=== PATIENT | male | born 1960 | race Caucasian/White ===

== ENCOUNTER 2016-09-09 16:31 | Emergency (ER) | payer OTHER ==
[~2016-09-09] VITALS: Ht 172.7 cm; Wt 103.4 kg
[~2016-09-09 16:31] MED LIST: ALEVE220 MG PO; LISINOPRIL10 M1 PO; LOSARTAN POTAS100 M1 PO; MOTRIN800 MG PO; NAPROXEN500 MG PO; NORCO 325 MG-51 TAB PO; XANAX0.25 M1 PO; [UNRECOGNIZED DRUG - OTHER] PO
--- NOTE | 2016-09-09 17:31 | ED NECK/BACK PAIN COMPLAINT ---
History of Present Illness General Chief Complaint: Neck/Upper Back Pain/Injury Stated Complaint: NECK PAIN FOR 5 WEEKS Source: patient Exam Limitations: no limitations Vital Signs & Intake/Output Vital Signs & Intake/Output Vital Signs Date Time Temp Pulse Resp B/P Pulse O2 O2 Flow FiO2 Ox Delivery Rate 09/09 1908 70 18 135/77 96 Room Air 09/09 1636 97.8 87 20 134/79 97 Room Air Allergies Coded Allergies: NO KNOWN ALLERGIES (09/09/16) Reconcile Medications Alprazolam (Xanax) 0.25 MG TABLET 1 TAB PO BIDP PRN anxiety Lisinopril 10 MG TABLET 1 TAB PO DAILY HYPERTENSION Losartan Potassium 100 MG TABLET 1 TAB PO DAILY HEART (Reported) Triage Note: TRIAGE: PT TO ER C/C NECK AND BACK PAIN X COUPLE MONTHS, CONSTANT AND WORSENING SINCE ONSET. DESCRIBES THROBBING AND STIFF IN NATURE. TRIED BUYING A NEW PILLOW WITH NO RELIEF NOTED. TAKING IBUPROFEN WITH NO RELIEF. NO KNOWN INJURY. Triage Nurses Notes Reviewed? yes HPI: Patient presents for evaluation of bilateral neck pain that began about 3 weeks ago. It begins in the back of the neck and wraps around to the front. Patient denies any associated injury or trauma. Patient denies any prior episodes. Patient describes a throbbing pain, 6 out of 10 in intensity but gets worse at night. Patient has tried ibuprofen and massages with transient improvement. He is even changed his pillow. The patient also states he has had numbness and tingling of both hands over the past week and occasionally they spasm. In Addition he is having pain in both of his temples traveling down into the jaw. Past History Travel History Traveled to [place] past 21 day No Medical History Any Pertinent Medical History? see below for history Neurological: NONE EENT: blood/chemical smell in the nose Cardiovascular: hypertension Respiratory: NONE Gastrointestinal: NONE Hepatic: NONE Renal: NONE Musculoskeletal: ARTHRITIS LEFT KNEE Psychiatric: anxiety Endocrine: NONE Blood Disorders: NONE Cancer(s): NONE INSIDE OUTSIDE SALES REPRESENTATIVE/Reproductive: NONE Surgical History Surgical History: non-contributory Psychosocial History What is your primary language Tanzanian Tobacco Use: Quit >30 days ago ETOH Use: occasional use Illicit Drug Use: denies illicit drug use Family History Hx Contributory? No Review of Systems Review of Systems Constitutional: Reports: no symptoms. Eyes: Reports: no symptoms. Ears, Nose, Throat, Mouth: Reports: see HPI. Respiratory: Reports: no symptoms. Cardiovascular: Reports: no symptoms. Gastrointestinal/Abdominal: Reports: no symptoms. Musculoskeletal: Reports: see HPI. Skin: Reports: no symptoms. Neurological/Psychological: Reports: tingling. All Other Systems: Reviewed and Negative Physical Exam Physical Exam Neck: see below Comments: Gen.: Well-nourished, well-developed, no acute respiratory distress. Head: Normocephalic, atraumatic. Eyes: Normal inspection bilaterally Ears: Normal inspection bilaterally Nose: Normal inspection Throat/mouth : Moist mucosa Neck: Supple, full range of motion without apparent discomfort, no goiter Heart: Regular rate and rhythm, no murmurs rubs or gallops, mild midline neck tenderness without associated soft tissue swelling or ecchymoses. Lungs: Clear to auscultation bilaterally with normal air entry Chest: Nontender Back: Normal range of motion, nontender Abdomen: Soft, nontender, nondistended, normal bowel sounds Extremities: Normal range of motion grossly, equal radial pulses, no cyanosis clubbing or edema Neurologic: Cranial nerves grossly intact, speech is clear, extremity sensation intact to light touch. Skin: warm and dry Psychiatric: Calm, cooperative, no apparent delusions or hallucinations Progress Differential Diagnosis: herniated disc, myofascial strain Plan of Care: Current Medications Sig/Kelsey Start time Last Medication Dose Stop Time Status Admin Cyclobenzaprine HCl 5 MG ONCE ONE 09/09 1929 UNVr (Flexeril 5MG Tab) 09/09 1930 Naproxen 1 MG ONCE ONE 09/09 1929 UNVr (Naprosyn) 09/09 1930 Anti-inflammatory muscle relaxant (JURGEN MONTANEZ,SCOT Bender) Diagnostic Imaging: Discussed w/RAD: Radiology Read. Radiology Impression: PATIENT: ERIKA BARON PRESENT AGE: 56 PATIENT ACCOUNT NO: [id number] : 62 LOCATION: [facility] ORDERING PHYSICIAN: SCOT SEAMAN MD SERVICE DATE: 09/09/16 EXAM TYPE: RAD - XRY-CERV SPINE 4 OR 5 VIEWS EXAMINATION: XR CERVICAL SPINE CLINICAL INFORMATION: 56-year-old man with neck pain and upper extremity paresthesias. COMPARISON: None. TECHNIQUE: 5 views of the cervical spine were obtained. FINDINGS: There is no evidence of acute fracture. Vertebral bodies are normal in height, intervertebral disc spaces are preserved, and alignment is anatomic. No significant bony foraminal stenosis is noted on either side. IMPRESSION: Unremarkable radiographic appearance of the cervical spine. DICTATED BY: SEBAS FRANKEL MD DATE/TIME DICTATED:09/09/161829 HOME HEALTH BILLING SPECIALIST:ESME DATE/TIME TRANSCRIBED:09/09/161829 CONFIDENTIAL, DO NOT COPY WITHOUT APPROPRIATE AUTHORIZATION. <Electronically signed in Other Vendor System> SIGNED BY: SEBAS FRANKEL MD 09/09/161833 Departure Departure Disposition: HOME OR SELF CARE Condition: Stable Clinical Impression Primary Impression: Neck strain Qualifiers: Encounter type: initial encounter Qualified Code: S16.1XXA - Strain of muscle, fascia and tendon at neck level, initial encounter Referrals: CRISTOBAL HAN,RENUKA Bocanegra (PCP/Family) Departure Forms: Customer Survey General Discharge Information Prescriptions: Current Visit Scripts Diclofenac Sodium 1 TAB PO BID PRN PAIN #14 TAB Cyclobenzaprine HCl 1 TAB PO TID PRN MUSCLE SPASMS #21 TAB
--- NOTE | 2016-09-09 18:34 | RADIOLOGY REPORT ---
EXAMINATION: XR CERVICAL SPINE CLINICAL INFORMATION: 56-year-old man with neck pain and upper extremity paresthesias. COMPARISON: None. TECHNIQUE: 5 views of the cervical spine were obtained. FINDINGS: There is no evidence of acute fracture. Vertebral bodies are normal in height, intervertebral disc spaces are preserved, and alignment is anatomic. No significant bony foraminal stenosis is noted on either side. IMPRESSION: Unremarkable radiographic appearance of the cervical spine.
[2016-09-09 19:08] VITALS: BP 135/77
[2016-09-09] MEDS ORDERED: CYCLOBENZAPRINE10 M1 PO (19:30)
[2016-09-09] MEDS ORDERED: DICLOFENAC SODI75 M2 PO (19:30)
== END 2016-09-09 19:55 ==
LOC: ERH 16:31
DX: S16.1XXA Strain of muscle, fascia and tendon at neck level, initial encounter (principal); X58.XXXA Exposure to other specified factors, initial encounter
CPT/HCPCS: 72050

== ENCOUNTER 2017-12-27 11:25 | Emergency (ER) | payer OTHER ==
[~2017-12-27] VITALS: Ht 172.7 cm; Wt 77.1 kg
[~2017-12-27 11:25] MED LIST changes: +CYCLOBENZAPRINE10 M1 PO; +DICLOFENAC SODI75 M2 PO
--- NOTE | 2017-12-27 12:17 | ED GI/GU/ABDOMINAL COMPLAINT ---
History of Present Illness General Chief Complaint: Abdominal Pain/Flank Pain Stated Complaint: LLQ PAIN Source: patient, old records Exam Limitations: no limitations Vital Signs & Intake/Output Vital Signs & Intake/Output Vital Signs Date Time Temp Pulse Resp B/P B/P Pulse O2 O2 Flow FiO2 Mean Ox Delivery Rate 12/27 1407 97.6 63 14 149/91 97 Room Air ED Intake and Output 12/28 0000 05 1200 Intake Total 0 Output Total Balance 0 Intake, Oral 0 Patient 77.111 kg Weight Weight Reported by Patient Measurement Method Allergies Coded Allergies: NO KNOWN ALLERGIES (09/09/16) Reconcile Medications Alprazolam (Xanax) 0.25 MG TABLET 1 TAB PO BIDP PRN anxiety Cyclobenzaprine HCl 10 MG TABLET 1 TAB PO TID PRN MUSCLE SPASMS Diclofenac Sodium 75 MG TABLET.DR 1 TAB PO BID PRN PAIN Lisinopril 10 MG TABLET 1 TAB PO DAILY HYPERTENSION Losartan Potassium 100 MG TABLET 1 TAB PO DAILY HEART (Reported) Triage Note: 57 YO MALE TO TRIAGE C/O LLQ PAIN X1 WEEK. STATES HX OF DIVERTICULOSIS. DENIES NVD. DENIES URIANRY S/S. LMB THIS AM AND NORMAL. Triage Nurses Notes Reviewed? yes HPI: 57M PMH HTN presenting with 1 week of intermittent LLQ pain. Pain can become severe, worse when straining, not related to food. No diarrhea, constipation, fever, chills, n/v, chest pain, SOB, dysuria, hematuria. Has a history of kidney stones but pain is much less severe. Colonoscopy a few months ago showed diverticulosis. No other complaints. Past History Travel History Traveled to [place] past 21 day No Medical History Any Pertinent Medical History? see below for history Neurological: NONE EENT: blood/chemical smell in the nose Cardiovascular: hypertension Respiratory: NONE Gastrointestinal: NONE Hepatic: NONE Renal: NONE Musculoskeletal: ARTHRITIS LEFT KNEE Psychiatric: anxiety Endocrine: NONE Blood Disorders: NONE Cancer(s): NONE PACK OPERATOR/Reproductive: NONE Surgical History Surgical History: non-contributory Psychosocial History What is your primary language Bermudian Tobacco Use: Never used Family History Hx Contributory? No Review of Systems Review of Systems Constitutional: Reports: no symptoms. EENTM: Reports: no symptoms. Respiratory: Reports: no symptoms. Cardiovascular: Reports: no symptoms. GI: Reports: no symptoms. Genitourinary: Reports: no symptoms. Musculoskeletal: Reports: no symptoms. Skin: Reports: no symptoms. Neurological/Psychological: Reports: no symptoms. Hematologic/Endocrine: Reports: no symptoms. Immunologic/Allergic: Reports: no symptoms. All Other Systems: Reviewed and Negative Physical Exam Physical Exam General Appearance: well developed/nourished, no apparent distress Head: atraumatic, normal appearance Eyes: Bilateral: normal appearance. Ears, Nose, Throat, Mouth: hearing grossly normal, moist mucous membrane Neck: normal inspection, full range of motion Respiratory: normal breath sounds, no respiratory distress Cardiovascular: regular rate/rhythm Gastrointestinal: soft, Tender LLQ, no rebound or guarding Rectal: deferred Back: normal inspection, normal range of motion Extremities: normal range of motion Neurologic/Psych: awake, alert, oriented x 3, normal mood/affect Skin: intact, normal color, warm/dry Core Measures ACS in differential dx? No Sepsis Present: No Sepsis Focused Exam Completed? No Progress Differential Diagnosis: AAA, AMI, appendicitis, biliary colic, bowel obstruction , colon cancer, cholecystitis, diverticulitis, epididymitis, esophageal varices, gastritis, hepatitis, hernia, hemorrhoids, ischemic bowel, inflamm bowel dis, Abbie-Marcy tear, orchitis, pancreatitis, prostatitis, peptic ulcer, PUD/GERD, perforated viscous, pyelonephritis, SBO, STD, testicular torsion, ureterolithiasis, urinary retention, urethritis, UTI/pyelo Plan of Care: Laboratory Tests 12/27/17 1325: Urine Color YEL, Urine Clarity CLEAR, Urine pH 6.5, Ur Specific [place] <= 1.005 , Urine Protein NEG, Urine Ketones TRACE H, Urine Nitrite NEG, Urine Bilirubin NEG, Urine Urobilinogen 0.2, Ur Leukocyte Esterase NEG, Ur Microscopic EXAM NOT REQUIRED, Urine Hemoglobin NEG, Urine Glucose NEG 12/27/17 1252: Anion Gap 12, Estimated GFR > 60, BUN/Creatinine Ratio 18.6, Glucose 94, Calcium 9.3, Total Bilirubin 0.8, AST 28, ALT 49, Alkaline Phosphatase 69, C-React Prot High Sens 0.6 L, Total Protein 6.8, Albumin 4.4, Globulin 2.4, Albumin/Globulin Ratio 1.8, CBC w Diff NO MAN DIFF REQ, RBC 4.49 L, MCV 89.6, MCH 30.5, MCHC 34.0, RDW 13.3, MPV 6.9 L, Gran % 75.8 H, Lymphocytes % 15.3 L, Monocytes % 8.4, Eosinophils % 0.2, Basophils % 0.3, Absolute Granulocytes 4.5, Absolute Lymphocytes 0.9 L, Absolute Monocytes 0.5, Absolute Eosinophils 0, Absolute Basophils 0 Diagnostic Imaging: Viewed by Me: CT Scan. Discussed w/RAD: CT Scan. Radiology Impression: PATIENT: ERIKA BARON PRESENT AGE: 57 PATIENT ACCOUNT NO: [id number] : 62 LOCATION: [facility] ORDERING PHYSICIAN: Kamala Booker MD SERVICE DATE: 12/27/17 EXAM TYPE : CAT - CT ABD & PELVIS W/O IV CONTRAS EXAMINATION: CT ABDOMEN AND PELVIS WITHOUT CONTRAST CLINICAL INFORMATION: Left lower quadrant pain. Severe and intermittent for one week. Presumptive diagnosis of diverticulitis versus nephrolithiasis. COMPARISON: None. TECHNIQUE: Multidetector volumetric imaging was performed from the superior aspect of the liver through the pubic symphysis. Sagittal and coronal reformatted images were obtained on the technologist workstation. DLP: 292.90 mGy-cm. FINDINGS: LUNG BASES: The visualized lung bases are unremarkable. LIVER, GALLBLADDER, AND BILIARY TREE: The liver is normal in size, shape, and attenuation. No focal hepatic lesion on noncontrast imaging. No biliary ductal dilatation is present. The gallbladder is unremarkable with no evidence of radiopaque gallstones, gallbladder wall thickening, or obvious pericholecystic inflammatory changes. PANCREAS: Unremarkable on noncontrast imaging. SPLEEN, ADRENAL GLANDS: Unremarkable on noncontrast imaging. KIDNEYS AND URETERS: The kidneys are normal in size, shape, and attenuation. No hydronephrosis, hydroureter, or calculi seen. No perinephric stranding. BLADDER: Unremarkable. PELVIC VISCERA: Prostate gland mildly enlarged. Seminal vesicles unremarkable. GASTROINTESTINAL TRACT: A few scattered colonic diverticula are seen with no evidence of acute diverticulitis. The small and large bowel are otherwise unremarkable. The appendix is unremarkable. ABDOMINAL WALL: No significant hernia is appreciated. LYMPH NODES, VASCULAR: Mild atherosclerotic calcification of the abdominal aorta is seen. No significant abdominal or pelvic adenopathy. OSSEOUS STRUCTURES: Mild vertebral spondylosis in lower thoracic spine and in the mid and lower lumbar spine. Mild degenerative disc disease at the cecal junction. Mild facet arthropathy at L4-L5 and L5-S1. IMPRESSION: No acute intra-abdominal or pelvic process seen. Specifically, no evidence of nephrolithiasis or obstructive uropathy. There is mild sigmoid colonic diverticulosis with no evidence of acute diverticulitis. DICTATED BY: Radha Riojas MD DATE/TIME DICTATED:12/27/171317 OBSTETRICS TEACHER:ESME DATE/ TIME TRANSCRIBED:12/27/171317 CONFIDENTIAL, DO NOT COPY WITHOUT APPROPRIATE AUTHORIZATION. <Electronically signed in Other Vendor System> SIGNED BY: Radha Riojas MD 12/27/17 1338 Initial ED EKG: none Departure Departure Disposition: HOME OR SELF CARE Condition: Stable Clinical Impression Primary Impression: Abdominal muscle strain Referrals: Lorne Henning MD (PCP/Family) Additional Instructions: Follow up with your PCP. Return to ER if new or worsening symptoms. Departure Forms: Customer Survey General Discharge Information
[2017-12-27 13:05] LABS: ABSOLUTE BASOPHIL COUNT 0 /CUMM (0.0-0.2); ABSOLUTE EOSINOPHIL COUNT 0 /CUMM (0.0-0.7); ABSOLUTE GRANULOCYTE CT 4.5 /CUMM (1.4-6.5); ABSOLUTE LYMPH COUNT 0.9 /CUMM (1.2-3.4); ABSOLUTE MONOCYTE COUNT 0.5 /CUMM (0.10-0.60); BASOPHIL % 0.3 % (0.0-2.0); EOSINOPHIL % 0.2 % (0-5); GRANULOCYTE % 75.8 % (42.2-75.2); HEMATOCRIT 40.2 % (42-52); MEAN CORPUSCULAR HGB 30.5 PG (27.0-31.0); MEAN CORPUSCULAR VOLUME 89.6 FL (80.0-94.0); MEAN PLATELET VOLUME 6.9 FL (7.4-10.4); PLATELET COUNT 315 /CUMM (130-400); RBC DISTRIBUTION WIDTH 13.3 % (11.5-14.5); RED BLOOD CELL CT 4.49 /CUMM (4.70-6.10)
--- NOTE | 2017-12-27 13:33 | CT SCAN REPORT ---
EXAMINATION: CT ABDOMEN AND PELVIS WITHOUT CONTRAST CLINICAL INFORMATION: Left lower quadrant pain. Severe and intermittent for one week. Presumptive diagnosis of diverticulitis versus nephrolithiasis. COMPARISON: None. TECHNIQUE: Multidetector volumetric imaging was performed from the superior aspect of the liver through the pubic symphysis. Sagittal and coronal reformatted images were obtained on the technologist workstation. DLP: 292.90 mGy-cm. FINDINGS: LUNG BASES: The visualized lung bases are unremarkable. LIVER, GALLBLADDER, AND BILIARY TREE: The liver is normal in size, shape, and attenuation. No focal hepatic lesion on noncontrast imaging. No biliary ductal dilatation is present. The gallbladder is unremarkable with no evidence of radiopaque gallstones, gallbladder wall thickening, or obvious pericholecystic inflammatory changes. PANCREAS: Unremarkable on noncontrast imaging. SPLEEN, ADRENAL GLANDS: Unremarkable on noncontrast imaging. KIDNEYS AND URETERS: The kidneys are normal in size, shape, and attenuation. No hydronephrosis, hydroureter, or calculi seen. No perinephric stranding. BLADDER: Unremarkable. PELVIC VISCERA: Prostate gland mildly enlarged. Seminal vesicles unremarkable. GASTROINTESTINAL TRACT: A few scattered colonic diverticula are seen with no evidence of acute diverticulitis. The small and large bowel are otherwise unremarkable. The appendix is unremarkable. ABDOMINAL WALL: No significant hernia is appreciated. LYMPH NODES, VASCULAR: Mild atherosclerotic calcification of the abdominal aorta is seen. No significant abdominal or pelvic adenopathy. OSSEOUS STRUCTURES: Mild vertebral spondylosis in lower thoracic spine and in the mid and lower lumbar spine. Mild degenerative disc disease at the cecal junction. Mild facet arthropathy at L4-L5 and L5-S1. IMPRESSION: No acute intra-abdominal or pelvic process seen. Specifically, no evidence of nephrolithiasis or obstructive uropathy. There is mild sigmoid colonic diverticulosis with no evidence of acute diverticulitis.
[2017-12-27 14:07] VITALS: BP 149/91
== END 2017-12-27 14:06 ==
LOC: ERH 11:25
PROVIDERS: Internal Medicine
DX: S39.011A Strain of muscle, fascia and tendon of abdomen, initial encounter (principal); X58.XXXA Exposure to other specified factors, initial encounter; Y93.9 Activity, unspecified; Y92.9 Unspecified place or not applicable
CPT/HCPCS: 74176; 81003